=== PATIENT | male | born 1955 | race African-American/Black ===

== ENCOUNTER 2018-01-05 08:13 | Inpatient (IN) | payer MEDICAID ==
[~2018-01-05] VITALS: Ht 175.3 cm; Wt 68.0 kg
[2018-01-05] MEDS ORDERED: ASPIRIN 81MG TABLET PO ONE (08:30)
[2018-01-05 08:40] LABS: BASOPHILS % 0.9 % (0.0-2.0); EOSINOPHILS % 1.4 % (0.0-5.0); HEMATOCRIT. 38.4 % (42.0-52.0); HEMOGLOBIN. 12.9 g/dL (14.0-18.0); LYMPHOCYTES % 28.7 % (20.0-50.0); MEAN CORPUSCULAR HEMOGLOBIN 27.6 pg (28.0-32.0); MEAN CORPUSCULAR VOLUME 82.3 fL (80.0-94.0); MEAN PLATELET VOLUME 7.8 fl (7.4-10.4); MONOCYTES % 9.8 % (2.0-8.0); NEUTROPHILS % 59.2 % (40.0-76.0); PLATELET 398 x1000/uL (130-400); RED BLOOD CELL COUNT 4.67 mill/uL (4.7-6.1); RED CELL DISTRIBUTION WIDTH 13.9 % (11.6-14.6)
[2018-01-05 08:44] LABS: INR 1.1; PROTHROMBIN TIME 11.6 sec (9.4-11.6)
[2018-01-05 08:53] LABS: CHLORIDE 104 mEq/L (98-107); TROPONIN I < 0.02 ng/mL (0.00-0.04)
[2018-01-05] MEDS ORDERED: MORPHINE SULFATE 4 MG/ML CPJ (NOT FOR IM USE) IV ONE (13:30)
[2018-01-05] MEDS ORDERED: CLONIDINE 0.1MG TABLET PO PRN (13:45)
[2018-01-05] MEDS ORDERED: IPRATROPIUM/ALBUTEROL 0.5-3(2.5)MG/3ML NEB INH PRN (13:45)
[2018-01-05] MEDS ORDERED: MORPHINE SULFATE 4 MG/ML CPJ (NOT FOR IM USE) IV NR (13:45)
[2018-01-05] MEDS ORDERED: ACETAMINOPHEN 325MG TABLET PO PRN (13:45)
[2018-01-05] MEDS ORDERED: ONDANSETRON HCL 4MG/2ML VIAL IV PRN (13:45)
[2018-01-05] MEDS ORDERED: MAGNESIUM/ALUMINUM HYDROXIDE/SIMETHICONE 30ML UDC PO PRN (13:45)
[2018-01-05] MEDS ORDERED: GUAIFENESIN 200MG/10ML SUGAR FREE UDC PO PRN (13:45)
[2018-01-05] MEDS ORDERED: DOCUSATE SODIUM 100MG CAPSULE PO PRN (13:45)
[2018-01-05 14:25] LABS: CHLORIDE 104 mEq/L (98-107)
[2018-01-05 14:30] LABS: CREATINE KINASE 146 IU/L (39-308); TROPONIN I < 0.02 ng/mL (0.00-0.04)
[2018-01-05 14:54] LABS: HEPATITIS B SURFACE ANTIGEN NEGATIVE
[2018-01-05 15:22] LABS: HEPATITIS B CORE AB IGM NEGATIVE
[2018-01-05 15:23] LABS: HEPATITIS A AB IGM NEGATIVE (NEGATIVE)
[2018-01-05 16:00] VITALS: BP 171/81
[2018-01-05] MEDS: CLONIDINE 0.1MG TABLET PO SCH ×3 (16:40→21:37)
[2018-01-05] MEDS: ENOXAPARIN 40MG/0.4ML SYR SUBCUT SCH (16:42)
[2018-01-05 16:57] VITALS: BP 171/81
[2018-01-05 20:00] VITALS: BP 119/65
[2018-01-05] MEDS: HYDROCODONE/ACETAMINOPHEN 5/325MG TABLET PO PRN (20:09)
[2018-01-05] MEDS: AMLODIPINE 5MG TABLET PO SCH (21:39)
[2018-01-06] VITALS: BP 161/83
[2018-01-06 00:11] LABS: CREATINE KINASE 107 IU/L (39-308); CREATINE KINASE MB FRACTION 2.6 ng/mL (0.5-3.6); TROPONIN I < 0.02 ng/mL (0.00-0.04)
[2018-01-06 00:15] LABS: CLARITY URINE CLEAR (CLEAR); COLOR URINE YELLOW (YELLOW); KETONES URINE TRACE (NEGATIVE); LEUKOCYTE ESTERASE URINE NEGATIVE (NEGATIVE); NITRITE URINE NEGATIVE (NEGATIVE); OCCULT BLOOD URINE NEGATIVE (NEGATIVE); PROTEIN URINE NEGATIVE (NEGATIVE); SPECIFIC GRAVITY URINE 1.019 (1.005-1.030); UROBILINOGEN URINE 0.2 E.U./dL (0.2-1.0)
[2018-01-06 00:31] LABS: *AMPHETAMINES SCREEN URINE NEGATIVE (NEGATIVE); *BARBITURATES SCREEN URINE NEGATIVE (NEGATIVE); *BENZODIAZEPINES SCREEN URINE NEGATIVE (NEGATIVE); *COCAINE SCREEN URINE NEGATIVE (NEGATIVE); CANNABINOID URINE SCREEN PRESUMTIVE POSITIVE (NEGATIVE); METHADONE URINE SCREEN NEGATIVE (NEGATIVE); OPIATES URINE SCREEN PRESUMTIVE POSITIVE (NEGATIVE); PHENCYCLIDINE URINE SCREEN NEGATIVE (NEGATIVE)
[2018-01-06 04:00] VITALS: BP 160/87
[2018-01-06] MEDS: HYDROCODONE/ACETAMINOPHEN 5/325MG TABLET PO PRN ×4 (05:07→21:41)
[2018-01-06 06:46] LABS: HEMATOCRIT. 34.7 % (42.0-52.0); HEMOGLOBIN. 11.8 g/dL (14.0-18.0); LYMPHOCYTES % 29.4 % (20.0-50.0); MEAN CORPUSCULAR HEMOGLOBIN 28.3 pg (28.0-32.0); MEAN CORPUSCULAR VOLUME 83.1 fL (80.0-94.0); MEAN PLATELET VOLUME 8.3 fl (7.4-10.4); MONOCYTES % 10.7 % (2.0-8.0); NEUTROPHILS % 55.9 % (40.0-76.0); PLATELET 365 x1000/uL (130-400); RED BLOOD CELL COUNT 4.17 mill/uL (4.7-6.1); RED CELL DISTRIBUTION WIDTH 13.8 % (11.6-14.6)
[2018-01-06 08:00] VITALS: BP 143/75
[2018-01-06 08:29] LABS: HDL CHOLESTEROL 65 mg/dL (40-59); LDL CHOLESTEROL 74 mg/dL (5-100); TROPONIN I < 0.02 ng/mL (0.00-0.04)
[2018-01-06] MEDS: ASPIRIN 81MG EC TABLET PO SCH (09:51)
[2018-01-06] MEDS: AMLODIPINE 5MG TABLET PO SCH ×2 (09:51→21:32)
[2018-01-06 12:00] VITALS: BP 149/81
[2018-01-06 16:00] VITALS: BP 136/60
[2018-01-06] MEDS: LISINOPRIL 20MG TABLET PO SCH ×2 (17:06→21:32)
[2018-01-06] MEDS: ENOXAPARIN 40MG/0.4ML SYR SUBCUT SCH (17:06)
[2018-01-06 20:00] VITALS: BP 129/78
[2018-01-07] VITALS: BP 116/65
[2018-01-07 04:00] VITALS: BP 129/72
[2018-01-07 06:56] LABS: BASOPHILS % 1.1 % (0.0-2.0); HEMATOCRIT. 34.7 % (42.0-52.0); HEMOGLOBIN. 11.9 g/dL (14.0-18.0); LYMPHOCYTES % 31.8 % (20.0-50.0); MEAN CORPUSCULAR HEMOGLOBIN 28.3 pg (28.0-32.0); MEAN CORPUSCULAR VOLUME 82.7 fL (80.0-94.0); MEAN PLATELET VOLUME 8.1 fl (7.4-10.4); MONOCYTES % 12.3 % (2.0-8.0); NEUTROPHILS % 51.8 % (40.0-76.0); PLATELET 388 x1000/uL (130-400); RED CELL DISTRIBUTION WIDTH 13.9 % (11.6-14.6)
[2018-01-07 07:51] LABS: CHLORIDE 102 mEq/L (98-107)
[2018-01-07 08:00] VITALS: BP 118/70
[2018-01-07] MEDS: AMLODIPINE 5MG TABLET PO SCH (08:48)
[2018-01-07] MEDS: LISINOPRIL 20MG TABLET PO SCH (08:48)
[2018-01-07] MEDS: ASPIRIN 81MG EC TABLET PO SCH (08:48)
[2018-01-07] MEDS: HYDROCODONE/ACETAMINOPHEN 5/325MG TABLET PO PRN (08:48)
[2018-01-07 12:00] VITALS: BP 135/66
[2018-01-07 12:36] VITALS: BP 118/70
== END 2018-01-07 13:10 | disposition home or self-care (01) | DRG 198 ==
LOC: ER 08:13 → EDBEDREQ 13:03 → ENRESERV 15:40 → 6WST 16:28
PROVIDERS: ADMIT Internal Medicine; ATTEND Internal Medicine
DX: I24.9 Acute ischemic heart disease, unspecified (principal); I11.0 Hypertensive heart disease with heart failure; I42.9 Cardiomyopathy, unspecified; I50.9 Heart failure, unspecified; J44.9 Chronic obstructive pulmonary disease, unspecified; Z79.82 Long term (current) use of aspirin; F17.210 Nicotine dependence, cigarettes, uncomplicated; F12.90 Cannabis use, unspecified, uncomplicated; B19.20 Unspecified viral hepatitis C without hepatic coma; R74.0 Nonspecific elevation of levels of transaminase and lactic acid dehydrogenase [LDH]; Z95.810 Presence of automatic (implantable) cardiac defibrillator; E44.1 Mild protein-calorie malnutrition
CPT/HCPCS: 36415; 71045; 80048; 80053; 80061; 80305; 81003; 82550; 82553; 83735; 83880; 84443; 84484; 85025; 85610; 86705; 86709; 86803; 87340; 93005; 93306; 93970; 96372; 96374; 99285; J1650; J2270